=== PATIENT | male | born 1980 | race African-American/Black ===

== ENCOUNTER 2022-09-26 17:59 | Emergency (ER) | payer SELFPAY ==
[~2022-09-26] VITALS: Ht 188 cm; Wt 100.7 kg
[2022-09-26 18:21] VITALS: BP 119/72
--- NOTE | 2022-09-26 20:48 | NUR ---
PT TAKEN TO BED #4
--- NOTE | 2022-09-26 20:50 | NUR ---
42 Y/O M PRESENTS TO ED WITH C/O LLE PAIN x1 WEEK. 10/10 PAIN WORSE WITH AMBULATION. PT HAS NON-HEALING OPEN ULCER TO LLE WITH DRAINAGE. PT REPORTS APPLY TOPICAL ATB WITH MINIMAL RELIEF. +EDEMA TO LLE NOTED.
[2022-09-26] MEDS ORDERED: VANCOMYCIN 1,000 MG in DEXTROSE 5% 250 ML IV ONE (20:55)
--- NOTE | 2022-09-26 20:57 | NUR ---
LAB AT BEDSIDE
[2022-09-26] MEDS ORDERED: VANCOMYCIN 1,000 MG VIAL ONE (21:28)
--- NOTE | 2022-09-26 21:45 | NUR ---
WOUND CULTURE OBTAINED.
--- NOTE | 2022-09-26 22:17 | NUR ---
PT TO BED 09.
[2022-09-26] MEDS ORDERED: CEPH-588 PO (23:48)
[2022-09-26 23:50] VITALS: BP 142/80
== END 2022-09-26 23:53 | disposition home or self-care (01) ==
LOC: MED 17:59
DX: L97.929 Non-pressure chronic ulcer of unspecified part of left lower leg with unspecified severity (principal)
CPT/HCPCS: 36415; 83605; 87040; 87070; 96365; 99284; J3370; 87186